=== PATIENT | female | born 1990 | race Caucasian/White ===

== ENCOUNTER 2019-10-17 12:38 | Emergency (ER) | payer OTHER ==
[~2019-10-17] VITALS: Ht 167.6 cm; Wt 64.0 kg
[2019-10-17] MEDS ORDERED: [UNRECOGNIZED DRUG - OTHER] PO (12:51)
[2019-10-17 13:47] LABS: URINE BILIRUBIN NEGATIVE (Negative); URINE BLOOD NEGATIVE (Negative); URINE CLARITY CLEAR; URINE COLOR YELLOW; URINE GLUCOSE-RANDOM NEGATIVE (Negative); URINE KETONES NEGATIVE (Negative); URINE LEUKOCYTES TRACE (Negative); URINE NITRITE NEGATIVE (Negative); URINE PROTEIN NEGATIVE (Negative); URINE UROBILINOGEN 0.2 E.U./dl (0.2-1.0)
[2019-10-17 13:53] LABS: ABSOLUTE EOSINOPHILS 0.3 thou/uL (0.0-0.7); ABSOLUTE LYMPHOCYTES 2.5 thou/uL (0.8-5.3); ABSOLUTE MONOCYTES 0.7 thou/uL (0.0-1.2); ABSOLUTE NEUTROPHILS 6.1 thou/uL (1.6-8.1); BASOPHILS 0.4 %; EOSINOPHILS 2.6 %; HEMATOCRIT 42.4 % (37.0-47.0); HEMOGLOBIN 14.8 gm/dL (12.0-15.0); LYMPHOCYTES 25.8 %; MCH 31.9 pg (26.0-34.0); MCHC 34.8 g/dL (28.0-37.0); MCV 91.5 fL (80.0-100.0); MONOCYTES 7.2 %; MPV 8.2 fl. (7.2-11.1); NUCLEATED RBCS 0 /100WBC; PLATELET COUNT* 306 thou/uL (150-400); RBC 4.63 mil/uL (4.20-5.00); RDW-CV 12.7 % (10.5-14.5); WBC 9.6 thou/uL (4.0-11.0)
[2019-10-17 13:55] LABS: CRYSTALS None Seen /LPF (None Seen); MUCUS None Seen strn/LPF (None Seen); SQUAMOUS >10 Many /LPF (0-3); URINE WBC 0-5 Rare /HPF (0-5)
[2019-10-17 13:56] LABS: BACTERIA >30 Many /HPF (None Seen)
[2019-10-17 13:57] LABS: CASTS None Seen /LPF (None Seen); URINE RBC None Seen /HPF (0-2)
[2019-10-17 14:03] LABS: CREATININE 0.9 mg/dL (0.6-1.3); POTASSIUM 3.7 mmol/L (3.5-5.1)
[2019-10-17 14:06] LABS: APTT 24.8 Seconds (25.0-31.3)
[2019-10-17 14:07] LABS: ALBUMIN 3.9 g/dL (3.4-5.0); TOTAL BILIRUBIN 0.9 mg/dL (<0.1-1.0); TOTAL PROTEIN 7.8 g/dL (6.4-8.2)
[2019-10-17] MEDS ORDERED: KEFLEX500 M1 PO (15:34)
[2019-10-17] MEDS ORDERED: MELOXICAM15 MG PO (15:34)
[2019-10-17] MEDS ORDERED: MEDROLDOSEPACK PO (15:34)
[2019-10-17 15:41] VITALS: BP 120/85
== END 2019-10-17 15:42 | disposition home or self-care (01) ==
LOC: M.ERS 12:38
PROVIDERS: Personal Emergency Response Attendant
DX: M79.604 Pain in right leg (principal); M79.89 Other specified soft tissue disorders; E03.9 Hypothyroidism, unspecified